=== PATIENT | female | born 1965 | race Caucasian/White ===

== ENCOUNTER → 2021-03-16 16:48 | Outpatient (BNVA) | payer BC, SELFPAY | PROVIDERS: Visit Provider Registered Nurse Neonatal Intensive Care | DX: Z20.822 Contact with and (suspected) exposure to COVID-19 (principal) | CPT/HCPCS: 87635 ==

== ENCOUNTER 2021-03-21 11:15 | Outpatient (CLI) | payer BC, SELFPAY ==
[2021-03-21 12:03] VITALS: BP 106/59; PULSE 67; RESP 18; TEMP 36.3; O2SAT 99; BMI 23.3
--- NOTE | 2021-03-21 12:30 | PC.NURSE ---
All assessments and care provided by SHASHI Montgomery/documented by ELSA Stokes
[2021-03-21 12:40] VITALS: BP 101/59; PULSE 66; RESP 18; TEMP 36.1; O2SAT 99
[2021-03-21 13:44] VITALS: BP 100/60; PULSE 64; RESP 18; TEMP 36.8; O2SAT 99
== END 2021-03-21 11:16 | disposition home or self-care (01) ==
LOC: OPS 11:21
PROVIDERS: Visit Provider Registered Nurse Neonatal Intensive Care
DX: U07.1 COVID-19 (principal)
CPT/HCPCS: 96365

== ENCOUNTER → 2022-05-01 10:35 | Outpatient (BNVA) | payer OTHER, SELFPAY | PROVIDERS: Visit Provider Emergency Medicine | DX: J06.9 Acute upper respiratory infection, unspecified (principal) | CPT/HCPCS: 87400 ==